=== PATIENT | male | born 1955 | race Caucasian/White ===

== ENCOUNTER 2016-09-20 15:10 | Outpatient (CLI) | payer OTHER ==
--- NOTE | 2016-09-20 15:59 | DIAGNOSTIC IMAGING REPORT ---
PROCEDURE: XR CLAVICLE - LEFT INDICATION: NECK SWELLING TECHNIQUE: Two views left clavicle COMPARISON: None. FINDINGS: Normal clavicle scapula and ribs. There is soft tissue swelling above the clavicle. IMPRESSION: 1. Soft tissue swelling above the clavicle. Normal osseous structures
[2016-10-02] MEDS ORDERED: CALAN SR180 MG PO (13:09)
[2016-10-02] MEDS ORDERED: LISINOPRIL10 MG PO (13:10)
[2016-10-02] MEDS ORDERED: TAMSULOSIN HCL0.4 MG PO (13:11)
[2016-10-02] MEDS ORDERED: CYMBALTA60 MG PO (13:11)
[2016-10-02] MEDS ORDERED: MELOXICAM15 MG PO (13:11)
[2016-10-02] MEDS ORDERED: AMBIEN10 MG PO (13:12)
[2016-10-02] MEDS ORDERED: ROPINIROLE HCL0.5 MG PO (13:12)
[2016-10-02] MEDS ORDERED: BACLOFEN10 MG PO (13:14)
[2016-10-02] MEDS ORDERED: FLOVENT HFA110 MCG IN (13:15)
[2016-10-02] MEDS ORDERED: VENTOLIN HFA IN (13:16)
[2016-10-02] MEDS ORDERED: RED YEAST RICE PO (13:16)
[2016-10-02] MEDS ORDERED: COQ10100 MG PO (13:17)
== END 2016-09-20 23:00 ==
LOC: XR SRH 15:10
DX: R22.1 Localized swelling, mass and lump, neck (principal)

== ENCOUNTER 2016-09-24 15:50 | Outpatient (CLI) | payer OTHER ==
--- NOTE | 2016-09-25 17:00 | DIAGNOSTIC IMAGING REPORT ---
PROCEDURE: US SOFT TISSUE THYR/NECK/HEAD INDICATION: NECK SWELLING TECHNIQUE: Kern scale and color Doppler sonographic images of the bilateral neck were obtained COMPARISON: None. FINDINGS: There is moderate bilateral cervical adenopathy involving the anterior posterior triangles, and extending from the sub mastoid region into the supraclavicular region. There is nodes demonstrate relatively normal internal architecture with central shine. Largest lymph node is in the left anterior mid neck (2.7 cm). IMPRESSION: 1. Mild bilateral cervical adenopathy. Consider neoplastic adenopathy (e.g., lymphoma, leukemia) or inflammatory adenopathy (e.g., viral). Tissue biopsy (excisional versus percutaneous ultrasound-guided) is recommended. 2. Findings discussed with Dr. Grover.
[2016-10-02] MEDS ORDERED: CALAN SR180 MG PO (13:09)
[2016-10-02] MEDS ORDERED: LISINOPRIL10 MG PO (13:10)
[2016-10-02] MEDS ORDERED: TAMSULOSIN HCL0.4 MG PO (13:11)
[2016-10-02] MEDS ORDERED: MELOXICAM15 MG PO (13:11)
[2016-10-02] MEDS ORDERED: CYMBALTA60 MG PO (13:11)
[2016-10-02] MEDS ORDERED: ROPINIROLE HCL0.5 MG PO (13:12)
[2016-10-02] MEDS ORDERED: AMBIEN10 MG PO (13:12)
[2016-10-02] MEDS ORDERED: BACLOFEN10 MG PO (13:14)
[2016-10-02] MEDS ORDERED: FLOVENT HFA110 MCG IN (13:15)
[2016-10-02] MEDS ORDERED: VENTOLIN HFA IN (13:16)
[2016-10-02] MEDS ORDERED: RED YEAST RICE PO (13:16)
[2016-10-02] MEDS ORDERED: COQ10100 MG PO (13:17)
== END 2016-09-24 23:00 ==
LOC: US SRH 15:50
DX: R59.9 Enlarged lymph nodes, unspecified (principal)

== ENCOUNTER 2016-10-04 06:01 | Day surgery (SDC) | payer OTHER ==
[~2016-10-04 06:01] MED LIST: AMBIEN10 MG PO; BACLOFEN10 MG PO; CALAN SR180 MG PO; COQ10100 MG PO; CYMBALTA60 MG PO; FLOVENT HFA110 MCG IN; LISINOPRIL10 MG PO; MELOXICAM15 MG PO; RED YEAST RICE PO; ROPINIROLE HCL0.5 MG PO; TAMSULOSIN HCL0.4 MG PO; VENTOLIN HFA IN
[2016-10-04] MEDS ORDERED: HYCET1 ML PO (07:45)
--- NOTE | 2016-10-04 07:47 | Provider's Discharge Care Plan ---
Problem, Goal, Plan Problem List 1. S/P LEFT CERVICAL LYMPH NODE BX Goals: Diagnostic testing, Therapeutic intervention Instructions: Follow up as directed, Take meds as directed
--- NOTE | 2016-10-04 07:47 | Provider's Discharge Care Plan ---
Problem, Goal, Plan Problem List 1. S/P LEFT CERVICAL LYMPH NODE BX Goals: Diagnostic testing, Therapeutic intervention Instructions: Follow up as directed, Take meds as directed
--- NOTE | 2016-10-04 09:24 | OPERATIVE REPORT ---
DATE OF SURGERY: 10/04/2016 SURGEON: Yadiel Hooper III, MD PREOPERATIVE DIAGNOSIS: 1. History of mantle cell lymphoma POSTOPERATIVE DIAGNOSIS: 1. History of mantle cell lymphoma PROCEDURES PERFORMED: 1. Left posterior cervical triangle lymph node biopsy x2. ANESTHESIA: LMA, local 1% Xylocaine with epinephrine. ESTIMATED BLOOD LOSS: Minimal. FLUIDS: 1200 mL lactated ringers. PATHOLOGY SPECIMEN: Upper portion left posterior cervical triangle lymph node, inferior left posterior cervical triangle lymph node. INDICATIONS: The patient is a 61-year-old male who carries a diagnosis of mantle cell lymphoma, diagnosed several years ago, has not had any treatment. The last couple of months has noticed some lymph nodes that are swollen in his neck and had some discomfort in the area of his left cervical lymph node radiating down into his upper left shoulder. No night sweats. No fevers. No chills. No weight loss. SURGICAL FINDINGS: The patient was noted to have cervical adenopathy in the upper portion of his left posterior cervical triangle and just in the inferior portion of the posterior cervical triangle on the left as well. Frozen section consistent with previously diagnosed mantle cell lymphoma. SURGICAL TECHNIQUE: The patient was brought to the operating room and placed in the dorsal supine position, where he underwent LMA by Anesthesia. After proper anesthesia had taken effect, the patient's left neck and upper chest were prepped using ChloraPrep and draped in a sterile fashion. Each site, having been previously identified in the preoperative holding area was once again identified, infiltrated using local anesthetic. A transverse incision was made over the skin, carried down through platysma onto the subcutaneous tissue. Using sharp dissection, we were able to enter the fascial plane, dissect the lymph nodes out and handing them off the field, sending it to pathology. Hemostasis achieved using pressure and electrocautery. Our attention was then turned to the most inferior portion of the left posterior triangle, which had been identified in the preoperative holding area, once again identified and infiltrated using local anesthetic. A transverse incision was made over this site, carried down through skin and subcutaneous tissue, carefully dissecting out the external jugular vein. Dissection continued down superficial fascia and then lymph node identified and circumferentially isolated using blunt dissection and sharp dissection and delivered into the wound and sent to pathology as well. Hemostasis achieved using electrocautery. Once hemostasis had been achieved After proper hemostasis had been achieved, each wound was closed using running subcuticular 4-0 Polysorb continuous suture. Steri-Strips placed over the wound. Pressure occlusive dressing was placed over the site. The patient tolerated the procedure well and was transferred to the recovery room in stable condition. There were no intraoperative or anesthetic complications.
== END 2016-10-04 10:34 | disposition home or self-care (01) ==
LOC: OR SRH 06:01
PROVIDERS: Specialist
PROC: 07B20ZX Excision of Left Neck Lymphatic, Open Approach, Diagnostic (ICD-10-PCS; principal; 2016-10-04 07:30)
DX: C85.81 Other specified types of non-Hodgkin lymphoma, lymph nodes of head, face, and neck (principal); C91.10 Chronic lymphocytic leukemia of B-cell type not having achieved remission
CPT/HCPCS: 29229; 50004; 60001; 70002; 80575; 83432; 84038; 91672; 92132